=== PATIENT | female | born 2000 | race Caucasian/White ===

== ENCOUNTER 2025-05-22 14:42 | Emergency (ER) | payer OTHER, SELFPAY ==
[2025-05-22 15:46] VITALS: BP 144/99; PULSE 85; RESP 17; TEMP 37; O2SAT 100; BMI 24.7
[2025-05-22 16:52] LABS: Add Manual Diff / Slide Review NO; Hematocrit 40.4 % (36-46); Hemoglobin 13.8 g/dL (12.0-16.0); Lymphocytes Absolute Auto 3600 /uL (1100-4500); Mean Corpuscular HGB Conc 34.1 % (30-36); Mean Corpuscular Hemoglobin 30.5 PG (26-34); Mean Corpuscular Volume 89.6 fL (80-100); Platelet Count 192 X10^3/uL (150-400)
--- NOTE | 2025-05-22 17:01 | ED_ITS ---
HPI - Headache General Chief Complaint: Headache Stated Complaint: tremors in eyes, BECERRA, nausea lightheadness Time Seen by Provider: 05/22/25 16:16 Mode of arrival: Ambulatory History of Present Illness HPI Narrative: Ms. Newton is a pleasant 24 year old female with no reported past medical history, on OCPs, who presents to the emergency department for worsening eye twitching, BECERRA, and neurologic symptoms over the last 4 months. Patient first developed a left upper eyelid twitch 4 months ago. It became more persistent, and she developed a pressure like headache one month ago as well. She went to the [facility] and was sent a neuro referral which insurance would not cover, and was started on sumtriptan prn which was not helpful for the eye twitching. Over the last week, she has developed bilateral upper eyelid twitching whenever the eyelids are closed, and she feels as though she is unable to raise her eyebrows effectively, worse on the left side. She is left handed and feels as though occasionally her handwriting on the left side has become abnormal. She has occasional lightheadedness, and has felt room spinning twice when lying flat over the last week. She occasionally feels nauseous, but no vomiting. She denies any illness over the last 6 months. No precipitating trauma, stress, or life changes. No medication changes. No diet or lifetsyle changes. No drug use or smoking. Denies CP, abd pain, SOB, visual disturbance, syncope, neck pain, fevers, chills, extremity weakness, chills, tingling, confusion, brain fog, ear pain, or any abnormalities besides her head/facial/eye changes. No family history of neurologic condition. No medical allergies. Related Data Home Medications ?Medication ?Instructions ?Recorded ?Confirmed drospirenone 3 mg-ethinyl 1 tab PO DAILY 05/06/2504/09 0 estradiol 0.02 mg tablet Previous Rx's ?Medication ?Instructions ?Recorded sumatriptan succinate 50 mg tablet See Rx Instructions PO .COMPLEX #9 05/06/25 tabs Allergies Allergy/AdvReac Type Severity Reaction Status Date / Time No Known Drug Allergies Allergy Verified 05/22/25 15:46 Review of Systems Review of Systems ROS Unobtainable: All systems reviewed & are unremarkable except as noted in HPI and below Exam Narrative Exam Narrative: GENERAL: 24 year old patient appears stated age. Well-developed patient, in no acute distress. HEAD: Atraumatic. Normocephalic. EYES: PERRL. Extraocular motions intact. No scleral icterus. No injection or drainage. No nystagmus. There is intermittent frequent twitch of left upper eyelid. Patient has twitching of bilateral upper eyelids with active closing of the eyes, this is not present at rest. ENT: Nose without bleeding, purulent drainage. Normal ear canals and pearly giraldo TMs bilaterally. NECK: Trachea midline. Cervical ROM intact. No meningeal signs. No midline cervical tenderness. CARDIOVASCULAR: Regular rate and rhythm. RESPIRATORY: ?Nonlabored respirations. ?Speaking in clear, full sentences. ?Clear to auscultation. Breath sounds equal bilaterally. No wheezes, rales, or rhonchi. ? GASTROINTESTINAL: Abdomen soft, non-tender, nondistended. Normal bowel sounds. EXTREMITIES: No upper or lower extremity edema or tenderness. 2+ bilateral radial pulses, 2+ bilateral PT pulses. BACK: Nontender. NEURO: AOx3. ?Clear speech. ?Moves all 4 extremities appropriately. Gross vision intact, no visual field loss. PERRL. Extraocular movements intact. Sensation intact to light touch throughout the distribution of the trigeminal nerve. Patient is only able to minimally elevate both eyebrows however elevation is symmetric. No asymmetry with facial expressions. Gross hearing intact. Voices clear, swallowing intact. 5/5 bilateral upper and lower extremity muscle strength intact. No pronator drift. Normal [id number], heel-dorado, rapid alternating movements, steady independent gait. Sensation intact to light touch throughout the face upper and lower extremities. SKIN: No rash or erythema of visible areas Initial Vital Signs Initial Vital Signs: Vital Signs Temperature 98.6 F 05/22/25 15:46 Pulse Rate 85 05/22/25 15:46 Respiratory Rate 17 05/22/25 15:46 Blood Pressure 144/99 H 05/22/25 15:46 Pulse Oximetry 100 05/22/25 15:46 Oxygen Delivery Method Room Air 05/22/25 15:46 Course Orders Ordered: ED Orders 05/22/25 15:40 CK [Creatine Kinase] Stat Complete Blood Count AUTO DIFF Stat Comprehensive Metabolic Panel Stat Magnesium Stat 05/22/25 17:17 CT head/brain wo con Stat Discontinued Medications Sodium Chloride (Normal Saline 0.9%) 1,000 mls @ 1,000 mls/hr IV BOLUS ONE Stop: 05/22/25 18:18 Last Infusion: 05/22/25 18:40 Dose: Infused Documented By: Admin: 05/22/25 17:28 Dose: 1,000 mls/hr Documented By: MINA POTASSIUM CHLORIDE IN WATER (Potassium Cl 10 Meq/100 Ml Marlen) 10 meq in 100 mls @ 100 mls/hr IV Q1H JEANETTE Stop: 05/22/25 19:29 Last Admin: 05/22/25 18:42 Dose: Not Given Documented By: Infusion: 05/22/25 18:41 Dose: Infused Documented By: Admin: 05/22/25 18:02 Dose: 100 mls/hr Documented By: MINA Sodium Chloride (Normal Saline 0.9%) 1,000 mls @ 1,000 mls/hr IV BOLUS ONE Stop: 05/22/25 19:37 Last Infusion: 05/22/25 19:45 Dose: Infused Documented By: Admin: 05/22/25 18:45 Dose: 1,000 mls/hr Documented By: MINA Ketorolac Tromethamine (Ketorolac 30 Mg/Ml Vial) 15 mg IV NOW ONE Stop: 05/22/25 17:20 Last Admin: 05/22/25 18:43 Dose: Not Given Documented By: LEONARD Ondansetron HCl (Ondansetron 4 Mg/2 Ml Inj) 4 mg IV NOW ONE Stop: 05/22/25 17:20 Last Admin: 05/22/25 18:17 Dose: Not Given Documented By: MINA Potassium Chloride (Potassium Chloride 20 Meq/15 Ml Udc) 20 meq PO NOW ONE Stop: 05/22/25 19:19 Last Admin: 05/22/25 19:35 Dose: 20 meq Documented By: RAJ Vital Signs Vital signs: Vital Signs - 8 hr 05/22/25 15:46 05/22/25 19:12 05/22/25 19:23 Temperature 98.6 F Pulse Rate 85 103 H Respiratory Rate 17 Blood Pressure 144/99 H 136/85 Pulse Oximetry 100 100 Oxygen Delivery Method Room Air 05/22/25 19:23 05/22/25 19:30 05/22/25 19:30 Temperature Pulse Rate 98 H 92 H Respiratory Rate Blood Pressure 123/73 Pulse Oximetry 99 100 Oxygen Delivery Method MDM - Headache Medical Records Attestation: I reviewed the patient's medical records. Lab Data 05/22/25 15:40 05/22/25 15:40 Labs: Lab Results 05/22/25 Range/Units 15:40 WBC 8.2 (4.5-11.0) X10^3/uL RBC 4.51 (4.0-5.2) X10^6/uL Hgb 13.8 (12.0-16.0) g/dL Hct 40.4 (36-46) % MCV 89.6 (80-100) fL MCH 30.5 (26-34) PG MCHC 34.1 (30-36) % RDW 12.2 (11.6-14.8) % Plt Count 192 (150-400) X10^3/uL Neut % (Auto) 45.9 L (50-75) % Lymph % (Auto) 43.3 H (25-40) % Woods % (Auto) 8.4 (3-14) % Eos % (Auto) 1.8 L (2-4) % Baso % (Auto) 0.6 (0-2) % Neut # (Auto) 3800 (7056-5960) /uL Lymph # (Auto) 3600 (3724-1014) /uL Woods # (Auto) 700 (0-900) /uL Eos # (Auto) 200 (0-450) /uL Baso # (Auto) 0 (0-100) /uL Sodium 137 (137-145) mmol/L Potassium 3.2 L (3.4-5.1) mmol/L Chloride 103 (98-107) mmol/L Carbon Dioxide 26 (22-32) mmol/L BUN 20 H (7-17) mg/dL Creatinine 0.77 (0.52-1.04) mg/dL Estimated GFR > 60 (>60) mL/min BUN/Creatinine Ratio 26.0 H (6-22) Glucose 101 H (70-99) mg/dL Calcium 9.5 (8.4-10.2) mg/dL Magnesium 1.9 (1.6-2.3) mg/dL Total Bilirubin 0.4 (0.2-1.3) mg/dL AST 80 H (14-36) IU/L ALT 38 H (<35) IU/L Alkaline Phosphatase 66 (38-126) U/L Total Creatine Kinase 2013 H (30-135) U/L Total Protein 7.9 (6.3-8.2) g/dL Albumin 4.3 (3.5-5.0) g/dL Globulin 3.6 (1.7-4.1) g/dL Albumin/Globulin Ratio 1.2 (1.0-2.8) Point of Care Testing Test Results Negative Urine Dip Bedside Urine Glucose Negative Bedside Urine Bilirubin - Negative Bedside Urine Ketone - Negative Urine Specific [place] 1.005 Bedside Urine Occult Blood - Negative Bedside Urine pH 6.5 Bedside Urine Protein - Negative Bedside Urine Urobilinogen - Negative Bedside Urine Nitrite - Negative Bedside Urine Leukocytes - Negative Esterase Imaging Data CT scan - head: Radiologist's Impression: PROCEDURE: CT HEAD/BRAIN WO CON INDICATIONS: L eye twitching; decreased forehead mvmt BL, BECERRA TECHNIQUE: Noncontrast 4.5 mm thick angled axial sections acquired from the foramen magnum to the vertex, with coronal and sagittal reformats. For radiation dose reduction, the following was used: automated exposure control, adjustment of mA and/or kV according to patient size. COMPARISON: None. FINDINGS: Image quality: Diagnostic. CSF spaces: Basal cisterns are patent. No extra-axial fluid collections. Ventricles are normal in size and shape. Brain: No midline shift. No intracranial mass effect or hemorrhage. Giraldo- white matter interface is normal. Skull and face: Calvarium and visualized facial bones are intact, without suspicious lesions. Sinuses: Visualized sinuses and mastoids are clear. IMPRESSION: No acute intracranial pathology. Dictated by: Cornell Beckham M.D. on 05/22/2025 at 18:18 Approved by: Cornell Beckham M.D. on 05/22/2025 at 18:19 [facility] Narrative Medical decision making narrative: 24 year old female with no reported past medical history, on OCPs, who presents to the emergency department for worsening eye twitching, BECERRA, and neurologic symptoms over the last 4 months. Differential diagnosis includes but is not limited to neuro muscular disorder, intracerebral mass, electrolyte derangement, dehydration, rhabdomyolysis, migraine, etc. On exam patient is in no acute distress, nontoxic-appearing, all vital signs within normal limits. She has no focal neurologic deficits but does have left upper eyelid twitching at rest and bilateral upper eyelid twitching with closing of eyes. Patient declines need for pain or nausea medication at this time. We will treat with IV fluids, check CBC, CMP, magnesium, CK, CT head without contrast. Discussed case with the attending physician, Dr. Cazares. Labs reveal normal WBC count 8.2, hemoglobin 13.8 hematocrit 40.4. Normal sodium 137. Decreased potassium 3.2. Elevated BUN 20, normal creatinine 0.77. Glucose 101. Calcium 9.5. Slight elevation of AST 80 ALT 38. Total creatinine kinase is elevated at 2013. Normal magnesium 1.9. CT brain reveals no acute intracranial pathology. Discussed all imaging results with attending you are physician. Patient's potassium was repleted and she was treated with 2 L of IV fluids. Printed discuss all findings with the patient, discussed the importance of increased hydration, electrolyte repletion, and prompt follow up with the PCP for repeat labs and Neurology referral. Discussed strict ED return precautions. Patient verbalized understanding of all information and is happy with this plan, all questions answered, she is stable for discharge home with her . Discharge Plan Departure Patient Disposition: Home Clinical Impression: Eye muscle twitches, Acute hypokalemia, Elevated CK Headache Qualifiers: Headache type: unspecified Headache chronicity pattern: chronic headache I ntractability: not intractable Qualified Code(s): R51.9 - Headache, unspecified Instructions: DI for Hypokalemia, DI for Headache Activity Restrictions/Additional Instructions: Dear Ms. Newton, Thank you for coming to the emergency department. Today you were evaluated for headache, eye twitching and other symptoms. Your lab work revealed low potassium, slightly elevated liver enzymes, and elevated creatinine kinase. CT scan of your brain did not reveal any anatomical abnormalities. You were treated with 2 L of IV fluids and potassium. Please have repeat lab work with your primary care doctor within the next week including complete metabolic panel with electrolytes and creatinine kinase. It is important to increase hydration and also increase electrolytes such as potassium and magnesium with daily supplementation or in your diet. Please return to the emergency department if you develop severe pain, visual changes, weakness numbness tingling of the body or any new or worsening symptoms. You will need to have a referral to Neurology from your primary care doctor. Please follow up with your primary care doctor within the next 2-3 days for ER follow-up. (If you do not have a PCP you can call [phone]. ?to schedule an appointment with an [facility] Primary Care Provider) IF YOU DEVELOP ANY NEW OR WORSENING SYMPTOMS, RETURN TO THE ER! Please read the attached instructions, they highlight more specific treatments and interventions for you at home. Thank you for letting me participate in your care, Sandrine Manzo PA-C Prescriptions: No Action drospirenone-ethinyl estradiol 3-0.02 mg tablet 1 tab PO DAILY sumatriptan succinate 50 mg tablet See Rx Instructions PO .COMPLEX Qty: 9 0RF Rx Instructions: take 1 tab at onset of headache; if no relief may repeat 1 tab after at least 2 hrs; max = 2 tabs/24 hr PO Referrals: Miscellaneous,Doctor, MD [Primary Care Provider, Medical] Stand Alone Forms: Patient Portal/API
[2025-05-22 17:14] LABS: Alanine Aminotransferase 38 IU/L (<35); Albumin 4.3 g/dL (3.5-5.0); Albumin Globulin Ratio 1.2 (1.0-2.8); Alkaline Phosphatase 66 U/L (38-126); Blood Urea Nitrogen 20 mg/dL (7-17); Calcium 9.5 mg/dL (8.4-10.2); Carbon Dioxide 26 mmol/L (22-32); Chloride 103 mmol/L (98-107); Estimated Glomerular Filt Rate > 60 mL/min (>60); Globulin 3.6 g/dL (1.7-4.1); Glucose 101 mg/dL (70-99); HEMOLYSIS < 15 (0-50); Magnesium 1.9 mg/dL (1.6-2.3); Potassium 3.2 mmol/L (3.4-5.1); Sodium 137 mmol/L (137-145); Total Protein 7.9 g/dL (6.3-8.2)
--- NOTE | 2025-05-22 17:17 | DI.CT.S_ITS ---
PROCEDURE: CT HEAD/BRAIN WO CON INDICATIONS: L eye twitching; decreased forehead mvmt BL, BECERRA TECHNIQUE: Noncontrast 4.5 mm thick angled axial sections acquired from the foramen magnum to the vertex, with coronal and sagittal reformats. For radiation dose reduction, the following was used: automated exposure control, adjustment of mA and/or kV according to patient size. COMPARISON: None. FINDINGS: Image quality: Diagnostic. CSF spaces: Basal cisterns are patent. No extra-axial fluid collections. Ventricles are normal in size and shape. Brain: No midline shift. No intracranial mass effect or hemorrhage. Giraldo- white matter interface is normal. Skull and face: Calvarium and visualized facial bones are intact, without suspicious lesions. Sinuses: Visualized sinuses and mastoids are clear. IMPRESSION: No acute intracranial pathology. Dictated by: Cornell Beckham M.D. on 05/22/2025 at 18:18 Approved by: Cornell Beckham M.D. on 05/22/2025 at 18:19
[2025-05-22 17:20] LABS: Creatine Kinase 2013 U/L (30-135)
[2025-05-22] MEDS: SODIUM CHLORIDE 0.9% 1,000 ML 1000 ML IV ×2 (17:28→18:45)
[2025-05-22] MEDS: POTASSIUM CHLORIDE IN WATER 10 MEQ/100 ML PIGGYBACK 100 MEQ IV (18:02)
--- NOTE | 2025-05-22 18:19 | PC.NURSE ---
Per provider Jovany hold toradol at this time.
--- NOTE | 2025-05-22 18:43 | PC.NURSE ---
Patient reports shakiness. Provider Jovany made aware and verbal direction to stop IV potassium and waste rest of bag. IV potassium stopped.
[2025-05-22 19:12] VITALS: PULSE 103; O2SAT 100
--- NOTE | 2025-05-22 19:18 | PC.NURSE ---
Eye twtiches noted when patient has eyes closed. Pt reports increased twitches over the alst week. Denies hx of trauma. Denies confusion. AOX4.
[2025-05-22 19:23] VITALS: BP 136/85; PULSE 98; O2SAT 99
[2025-05-22 19:30] VITALS: BP 123/73; PULSE 92; O2SAT 100
[2025-05-22] MEDS: POTASSIUM CHLORIDE 20 MEQ/15 ML UDC PO (19:35)
== END 2025-05-22 20:03 | disposition home or self-care (01) ==
PROVIDERS: Emergency Provider Physician Assistant
DX: R25.3 Fasciculation (principal); E87.6 Hypokalemia; R51.9 Headache, unspecified; R74.8 Abnormal levels of other serum enzymes
CPT/HCPCS: 36415; 70450; 80053; 81003; 81025; 82550; 83735; 85025; 96360; 96361; 99284

== ENCOUNTER 2025-05-25 06:47 | Emergency (ER) | payer OTHER, SELFPAY ==
[2025-05-25] VITALS (11 sets, daily range): BP systolic 111–145; BP diastolic 65–88; PULSE 74–115; RESP 17–26; TEMP 37.1; O2SAT 98–100; BMI 25.8
--- NOTE | 2025-05-25 06:57 | EKG_ITS ---
[place] [id number] [place] [id number] Test Date: 2025-05-25 Pat Name: Valeri Newton Department: Room: Gender: Female [employer] Supervisor: robin pardo : 2000 Requested By: Order Number: [id number] Reading MD: Refugio Oconnell MD Measurements Intervals [place] Rate: 91 P: 51 UT: 138 QRS: 57 QRSD: 100 T: -36 QT: 358 QTc: 440 Interpretive Statements Normal sinus rhythm Possible Left atrial enlargement Incomplete right bundle branch block Marked ST abnormality, possible inferior subendocardial injury NO PRIOR TRACING Electronically Signed On 05-25-2025 7:37:40 PDT by Refugio Oconnell MD
--- NOTE | 2025-05-25 07:16 | DI.RAD.S_ITS ---
PROCEDURE: XR CHEST 1V INDICATIONS: Chest Pain TECHNIQUE: One view of the chest was acquired. COMPARISON: None. FINDINGS: Surgical changes and devices: None. Lungs and pleura: Lungs are clear. No pleural effusions or pneumothorax. Mediastinum: Mediastinal contours appear normal. Heart size is normal. Bones and chest wall: No suspicious bony lesions. Overlying soft tissues appear unremarkable. IMPRESSION: No acute cardiopulmonary abnormality is seen. Dictated by: Shaw Laureano M.D. on 05/25/2025 at 8:44 Approved by: Shaw Laureano M.D. on 05/25/2025 at 8:44
[2025-05-25 07:26] LABS: Appearance Urine UA CLEAR; Bilirubin Urine UA NEGATIVE (NEGATIVE); Color Urine UA YELLOW; Glucose Urine UA NEGATIVE (Negative); Ketones Urine UA NEGATIVE (NEGATIVE); Leukocyte Esterase Urine UA NEGATIVE (NEGATIVE); Nitrite Urine UA NEGATIVE (Negative); Occult Blood Urine UA NEGATIVE (Negative); Protein Urine UA NEGATIVE (Negative); Specific Gravity Urine UA <=1.005 (1.000-1.035); Urobilinogen Urine UA 0.2 E.U./dL (0.2)
[2025-05-25 07:27] LABS: Add Manual Diff / Slide Review NO; Hematocrit 44.2 % (36-46); Hemoglobin 14.9 g/dL (12.0-16.0); Lymphocytes Absolute Auto 2900 /uL (1100-4500); Mean Corpuscular HGB Conc 33.7 % (30-36); Mean Corpuscular Hemoglobin 30.6 PG (26-34); Mean Corpuscular Volume 90.6 fL (80-100); Platelet Count 196 X10^3/uL (150-400)
[2025-05-25 07:28] LABS: pH Urine UA 5.5 (4.5-8.0)
[2025-05-25 07:37] LABS: Culture Indicated Urine Cult Not Indicated
[2025-05-25 07:38] LABS: INR 1.0 (0.9-1.3); Prothrombin Time 11.3 SECONDS (9.4-12.5)
--- NOTE | 2025-05-25 07:40 | ED_ITS ---
HPI - Arrhythmia/Palpitations General Chief Complaint: Arrhythmia/Palpitations Stated Complaint: elevated CK Time Seen by Provider: 05/25/25 06:57 Source: patient Mode of arrival: Ambulatory History of Present Illness HPI narrative: 24-year-old female history of PCOS on control started to have left eye twitching 3 4 months ago that has since progressed to frontal headache for the past 3 4 weeks increasing intensity along with bilateral eye twitching when she closes her eyes muscle cramps. She has seen her PCP in the walk-in clinic and has been put on migraine medication. 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 In the past 24 hours she has had heart palpitations in the midsternal region with no radiation elsewhere and denies any nausea vomiting diaphoresis dyspnea on exertion leg pain or leg swelling. Patient denies cough, runny nose, sore throat, dizziness, loss of consciousness, blurred vision, weakness in the arms, or legs or difficulty walking. Other than what is stated 14 point review of system is negative. Related Data Home Medications ?Medication ?Instructions ?Recorded ?Confirmed drospirenone 3 mg-ethinyl 1 tab PO DAILY 05/06/2504/09 estradiol 0.02 mg tablet Previous Rx's ?Medication ?Instructions ?Recorded sumatriptan succinate 50 mg tablet See Rx Instructions PO .COMPLEX #9 05/06/25 tabs potassium chloride 20 mEq 40 meq (2 x 20 mEq) PO DAILY #6 05/25/25 tablet,extended release(part/cryst) tabs Allergies Allergy/AdvReac Type Severity Reaction Status Date / Time No Known Drug Allergies Allergy Verified 05/25/25 06:56 Review of Systems Review of Systems ROS Unobtainable: All systems reviewed & are unremarkable except as noted in HPI and below Patient History Social History Smoking Status: Never smoker Smoking Status: Never smoker Exam Narrative Exam Narrative: GENERAL: [24] year old patient appears stated age. Well-developed patient, in mild distress. HEAD: Atraumatic. Normocephalic. EYES: Pupils equal round and reactive. Extraocular motions intact. No scleral icterus. No injection or drainage. ENT: Nose without bleeding, purulent drainage. Throat without erythema, tonsillar hypertrophy or exudate. Airway patent. NECK: Trachea midline. Non tender CARDIOVASCULAR: Regular rate and rhythm without murmurs, gallops, or rubs. RESPIRATORY: Clear to auscultation. Breath sounds equal bilaterally. No wheezes, rales, or rhonchi. GASTROINTESTINAL: Abdomen soft, non-tender, nondistended. EXTREMITIES: No edema or joint tenderness. BACK: Nontender without deformity or crepitance. No flank tenderness. NEURO: AOx3. GCS 15 nonfocal neuro exam SKIN: No rash or erythema of visible areas Initial Vital Signs Initial Vital Signs: Vital Signs Temperature 98.7 F 05/25/25 06:55 Pulse Rate 115 H 05/25/25 06:55 Respiratory Rate 18 05/25/25 06:55 Blood Pressure 145/85 H 05/25/25 06:55 Pulse Oximetry 100 05/25/25 06:55 Oxygen Delivery Method Room Air 05/25/25 06:55 Course Orders Ordered: ED Orders 05/25/25 07:12 Complete Blood Count AUTO DIFF Stat Comprehensive Metabolic Panel Stat D Dimer Stat Lipase Stat Magnesium Stat NT-proBNP (BNP-Adult 18+) Stat PTT Partial Thromboplastin Dilan Stat Prothrombin Time INR Stat TSH [Thyroid Stimulating Hormone] Stat Troponin & CK Cardiac Panel Stat Urinalysis and Microscopic Stat 05/25/25 07:16 XR chest 1V Stat EKG-12 Lead Stat Magnesium Oxide (Magnesium Oxide 400 Mg Tablet) 800 mg PO BID JEANETTE Last Admin: 05/25/25 08:30 Dose: 800 mg Documented By: DILEEP Discontinued Medications Lactated Ringer's (Lactated Ringers) 1,000 mls @ 1,000 mls/hr IV BOLUS ONE Stop: 05/25/25 08:38 Last Infusion: 05/25/25 08:24 Dose: Infused Documented By: Admin: 05/25/25 07:52 Dose: 1,000 mls/hr Documented By: DILEEP Potassium Chloride (Potassium Chloride 20 Meq/15 Ml Udc) 40 meq PO NOW ONE Stop: 05/25/25 08:13 Last Admin: 05/25/25 08:30 Dose: 40 meq Documented By: DILEEP Vital Signs Vital signs: Vital Signs - 8 hr 05/25/25 06:55 05/25/25 06:59 05/25/25 07:00 Temperature 98.7 F Pulse Rate 115 H 96 H Respiratory Rate 18 Blood Pressure 145/85 H 138/86 Pulse Oximetry 100 100 Oxygen Delivery Method Room Air 05/25/25 07:00 05/25/25 07:08 05/25/25 07:08 Temperature Pulse Rate 112 H 90 Respiratory Rate 20 26 H Blood Pressure 140/81 Pulse Oximetry 100 100 Oxygen Delivery Method 05/25/25 07:30 05/25/25 07:30 05/25/25 08:00 Temperature Pulse Rate 84 Respiratory Rate 20 Blood Pressure 115/70 118/71 Pulse Oximetry 100 Oxygen Delivery Method 05/25/25 08:00 05/25/25 08:30 05/25/25 08:30 Temperature Pulse Rate 80 78 Respiratory Rate 23 20 Blood Pressure 135/88 Pulse Oximetry 100 100 Oxygen Delivery Method 05/25/25 08:31 05/25/25 08:31 Temperature Pulse Rate 77 Respiratory Rate 21 Blood Pressure 132/86 Pulse Oximetry 100 Oxygen Delivery Method MDM - Arrhythmia/Palpitations Lab Data 05/25/25 07:12 05/25/25 07:12 Labs: Lab Results 05/25/25 Range/Units 07:12 WBC 6.3 (4.5-11.0) X10^3/uL RBC 4.88 (4.0-5.2) X10^6/uL Hgb 14.9 (12.0-16.0) g/dL Hct 44.2 (36-46) % MCV 90.6 (80-100) fL MCH 30.6 (26-34) PG MCHC 33.7 (30-36) % RDW 12.4 (11.6-14.8) % Plt Count 196 (150-400) X10^3/uL Neut % (Auto) 39.9 L (50-75) % Lymph % (Auto) 46.3 H (25-40) % [place] % (Auto) 10.2 (3-14) % Eos % (Auto) 3.0 (2-4) % Baso % (Auto) 0.6 (0-2) % Neut # (Auto) 2500 (4648-1319) /uL Lymph # (Auto) 2900 (2922-3653) /uL [place] # (Auto) 600 (0-900) /uL Eos # (Auto) 200 (0-450) /uL Baso # (Auto) 0 (0-100) /uL PT 11.3 (9.4-12.5) SECONDS INR 1.0 (0.9-1.3) APTT 28 (25.1-36.5) SECONDS D-Dimer < 215 (<500) ng/ml Sodium 140 (137-145) mmol/L Potassium 3.0 L (3.4-5.1) mmol/L Chloride 102 (98-107) mmol/L Carbon Dioxide 27 (22-32) mmol/L BUN 16 (7-17) mg/dL Creatinine 0.88 (0.52-1.04) mg/dL Estimated GFR > 60 (>60) mL/min BUN/Creatinine Ratio 18.2 (6-22) Glucose 84 (70-99) mg/dL Calcium 9.6 (8.4-10.2) mg/dL Magnesium 1.8 (1.6-2.3) mg/dL Total Bilirubin 0.7 (0.2-1.3) mg/dL AST 42 H (14-36) IU/L ALT 29 (<35) IU/L Alkaline Phosphatase 58 (38-126) U/L Total Creatine Kinase 231 H D (30-135) U/L Troponin I < 0.012 (0.01-0.034) ng/mL NT-Pro-B Natriuret Pep 105 (<125) pg/mL Total Protein 8.3 H (6.3-8.2) g/dL Albumin 4.6 (3.5-5.0) g/dL Globulin 3.7 (1.7-4.1) g/dL Albumin/Globulin Ratio 1.2 (1.0-2.8) Lipase 122 (23-300) U/L TSH 5.45 H (0.47-4.68) uIU/mL Urine Color Yellow Urine Appearance Clear Urine pH 5.5 (4.5-8.0) Ur Specific [place] <=1.005 (1.000-1.035) Urine Protein Negative (Negative) Urine Glucose (UA) Negative (Negative) g/dL Urine Ketones Negative (NEGATIVE) Urine Occult Blood Negative (Negative) Urine Nitrate Negative (Negative) Urine Bilirubin Negative (NEGATIVE) Urine Urobilinogen 0.2 (0.2) E.U./dL Ur Leukocyte Esterase Negative (NEGATIVE) Urine RBC None seen (0-5/HPF) Urine WBC None seen (0-5/HPF) Ur Squamous Epith Cells None seen (0-5/HPF) Amorphous Sediment 1+ Urine Bacteria None seen (None) Ur Culture Indicated? Cult not indicated Vol Urine Centrifuged 10ml (spun) Imaging Data Chest x-ray: Radiologist's Impresson: XRay Report Signed Patient: Valeri Newton MR#: [id number] : 2000 Acct:[id number] Age/Sex: 24 / F Date of Service: 05/25/25 Loc: ED Accession Number: [id number] Procedure: XR chest 1V Ordering Provider: Refugio Yadav D.O. PROCEDURE: XR CHEST 1V INDICATIONS: Chest Pain TECHNIQUE: One view of the chest was acquired. COMPARISON: None. FINDINGS: Surgical changes and devices: None. Lungs and pleura: Lungs are clear. No pleural effusions or pneumothorax. Mediastinum: Mediastinal contours appear normal. Heart size is normal. Bones and chest wall: No suspicious bony lesions. Overlying soft tissues appear unremarkable. IMPRESSION: No acute cardiopulmonary abnormality is seen. Dictated by: Shaw Laureano M.D. on 05/25/2025 at 8:44 Approved by: Shaw Laureano M.D. on 05/25/2025 at 8:44 ECG Data Interpretation: NSR HR 91 NM 138 QRS [address]-t wave change No previous EKG to compare MDM Narrative Medical decision making narrative: Vital signs, nurse triage note, medication list, previous ER visits, and all imaging studies reviewed. Patient given lactated ringer 1 L bolus potassium solution 40 mEq and Mag oxide 800 mg. Potassium 3 days ago was 3.2 today is 3.0 magnesium 1.8 CK today 231 from 2013 troponin normal D-dimer normal as x-ray did not show any acute process and EKG normal sinus rhythm. Differential diagnosis includes rhabdomyolysis, acute renal impairment, thyroid disease, electrolyte derangement. Follow up PCP in 1 week for recheck. Discharge Plan Departure Patient Disposition: Home Clinical Impression: Heart palpitations, Hypokalemia Instructions: DI for Hypokalemia Activity Restrictions/Additional Instructions: Return with new or worsening symptoms. Follow up with PCP in 1-2 weeks for recheck a potassium level. Take your medicines as directed. Prescriptions: New potassium chloride 20 mEq tablet,ER particles/crystals 40 meq PO DAILY Qty: 6 0RF No Action drospirenone-ethinyl estradiol 3-0.02 mg tablet 1 tab PO DAILY sumatriptan succinate 50 mg tablet See Rx Instructions PO .COMPLEX Qty: 9 0RF Rx Instructions: take 1 tab at onset of headache; if no relief may repeat 1 tab after at least 2 hrs; max = 2 tabs/24 hr PO Referrals: ProviderNathalia [Primary Care Provider, Family Practice] Stand Alone Forms: Patient Portal/API
[2025-05-25 07:41] LABS: PTT Partial Thromboplastin Tim 28 SECONDS (25.1-36.5)
[2025-05-25 07:47] LABS: Alanine Aminotransferase 29 IU/L (<35); Albumin 4.6 g/dL (3.5-5.0); Albumin Globulin Ratio 1.2 (1.0-2.8); Alkaline Phosphatase 58 U/L (38-126); Blood Urea Nitrogen 16 mg/dL (7-17); Calcium 9.6 mg/dL (8.4-10.2); Carbon Dioxide 27 mmol/L (22-32); Chloride 102 mmol/L (98-107); Creatine Kinase 231 U/L (30-135); Estimated Glomerular Filt Rate > 60 mL/min (>60); Globulin 3.7 g/dL (1.7-4.1); Glucose 84 mg/dL (70-99); HEMOLYSIS < 15 (0-50); Lipase 122 U/L (23-300); Magnesium 1.8 mg/dL (1.6-2.3); Potassium 3.0 mmol/L (3.4-5.1); Sodium 140 mmol/L (137-145); Total Protein 8.3 g/dL (6.3-8.2)
[2025-05-25] MEDS: LACTATED RINGERS 1,000 ML 1000 ML IV (07:52)
[2025-05-25 07:59] LABS: NT-proBNP (BNP-Adult 18+) 105 pg/mL (<125); Troponin I < 0.012 ng/mL (0.01-0.034)
[2025-05-25 08:30] LABS: Thyroid Stimulating Hormone 5.45 uIU/mL (0.47-4.68)
[2025-05-25] MEDS: POTASSIUM CHLORIDE 20 MEQ/15 ML UDC 40 MEQ PO (08:30)
[2025-05-25] MEDS: MAGNESIUM OXIDE 400 MG TABLET 800 MG PO (08:30)
[2025-05-25 09:21] LABS: Free T4, Direct Thyroxine 1.34 ng/dL (0.78-2.19)
== END 2025-05-25 09:40 | disposition home or self-care (01) ==
PROVIDERS: Emergency Provider Family Medicine
DX: R00.2 Palpitations (principal); E87.6 Hypokalemia; R07.9 Chest pain, unspecified
CPT/HCPCS: 36415; 71045; 80053; 81001; 82550; 83690; 83735; 83880; 84439; 84443; 84484; 85025; 85379; 85610; 85730; 93005; 96360; 99284

== ENCOUNTER → 2025-07-04 12:36 | Outpatient (CLI) | payer OTHER, SELFPAY ==
--- NOTE | 2025-07-04 12:37 | DI.MRI.S_ITS ---
PROCEDURE: MR ABDOMEN WO/W CON INDICATIONS: hypoglycemia TECHNIQUE: Coronal HASTE, axial 2D FLASH in- and [id number]; axial breath-hold T2 FSE. Dynamic axial VIBE during the administration of contrast; post-contrast coronal VIBE or 2D FLASH with fat saturation from the hepatic dome to the iliac crests. Optional diffusion weighted imaging and ADC may be performed. COMPARISON: None. FINDINGS: Image quality: Diagnostic. Lung bases: Unremarkable. Liver: Normal size and signal. Smooth margin. No enhancing mass. Gallbladder: No gallstones or wall thickening. Biliary ducts: No biliary dilation. Pancreas: Normal size and morphology without visible ductal dilatation or inflammation. Conventional ductal anatomy. Spleen: Size is within normal limits. Adrenal Glands: No adrenal nodules. Kidneys and Ureters: Symmetric enhancement. No nephrolithiasis or hydronephrosis. No visible mass or cyst requiring follow up. No hydroureter. Stomach and Bowel: Stomach filled with ingested material visible small and large bowel loops are otherwise normal. Peritoneum: No free fluid or free air. Ventral Wall: No hernia. Abdominal Nodes: No retroperitoneal or mesenteric adenopathy by size criteria. Vessels: The abdominal aorta, IVC, and portal vein are of normal caliber. Bones: Mild S-shaped scoliosis. No suspicious bone lesion. IMPRESSION: Normal MRI of the abdomen without explanation for symptoms. Dictated by: Glenys Villafuerte M.D. on 07/05/2025 at 11:21 Approved by: Glenys Villafuerte M.D. on 07/05/2025 at 11:30
== END ==
LOC: MRI 12:37
PROVIDERS: Referring Provider Nurse Practitioner Family; Visit Provider Nurse Practitioner Family
DX: E16.2 Hypoglycemia, unspecified (principal); E87.6 Hypokalemia
CPT/HCPCS: 74183; A9579

== ENCOUNTER → 2025-07-05 07:40 | Outpatient (CLI) | payer OTHER, SELFPAY ==
--- NOTE | 2025-07-05 07:41 | DI.US.S_ITS ---
PROCEDURE: US SOFT TISSUE HEAD AND NECK INDICATIONS: neoplasm of uncertain behavior TECHNIQUE: Real-time scanning was performed of the neck region of interest, with image documentation. COMPARISON: [facility], CT, CT HEAD/BRAIN WO CON, 05/22/2025, 17:43. FINDINGS: 0.4 x 0.2 x 0.5 centimeter hypoechoic nodule with oval contours and well-defined margins in the region of clinical interest at the posterior right neck. Doppler evaluation demonstrates no internal vascularity. IMPRESSION: 0.4 x 0.2 x 0.5 centimeter nonspecific hypoechoic nodule corresponds to palpable lesion. Dictated by: Steph Lindsey MD, PhD on 07/05/2025 at 9:37 Approved by: Steph Lindsey MD, PhD on 07/05/2025 at 9:39
== END ==
LOC: US 07:40
PROVIDERS: Referring Provider Nurse Practitioner Family; Visit Provider Nurse Practitioner Family
DX: D48.5 Neoplasm of uncertain behavior of skin (principal)
CPT/HCPCS: 76536

== ENCOUNTER 2025-07-09 11:16 | Emergency (ER) | payer OTHER, SELFPAY ==
[2025-07-09] VITALS (12 sets, daily range): BP systolic 113–143; BP diastolic 60–86; PULSE 72–106; RESP 14–22; TEMP 36.7–37.1; O2SAT 97–100; BMI 24.7
--- NOTE | 2025-07-09 11:47 | EKG_ITS ---
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
--- NOTE | 2025-07-09 11:47 | DI.RAD.S_ITS ---
PROCEDURE: XR CHEST 1V INDICATIONS: Chest Pain TECHNIQUE: One view of the chest was acquired. COMPARISON: [facility], CR, XR CHEST 1V, 05/25/2025, 7:31. FINDINGS: Surgical changes and devices: None. Lungs and pleura: Lungs are clear. No pleural effusions or pneumothorax. Mediastinum: Mediastinal contours appear normal. Heart size is normal. Bones and chest wall: No suspicious bony lesions. Overlying soft tissues appear unremarkable. IMPRESSION: No acute cardiopulmonary abnormality is seen. Approved by: Osvaldo Pat M.D. on 07/09/2025 at 11:30
[2025-07-09 12:23] LABS: INR 1.0 (0.9-1.3); Prothrombin Time 11.4 SECONDS (9.4-12.5)
[2025-07-09 12:25] LABS: Add Manual Diff / Slide Review NO; Hematocrit 43.0 % (36-46); Hemoglobin 14.6 g/dL (12.0-16.0); Lymphocytes Absolute Auto 2900 /uL (1100-4500); Mean Corpuscular HGB Conc 34.0 % (30-36); Mean Corpuscular Hemoglobin 30.5 PG (26-34); Mean Corpuscular Volume 89.6 fL (80-100); PTT Partial Thromboplastin Tim 27 SECONDS (25.1-36.5); Platelet Count 171 X10^3/uL (150-400)
[2025-07-09 12:28] LABS: Alanine Aminotransferase 21 IU/L (<35); Albumin 4.7 g/dL (3.5-5.0); Albumin Globulin Ratio 1.3 (1.0-2.8); Alkaline Phosphatase 51 U/L (38-126); Blood Urea Nitrogen 10 mg/dL (7-17); Calcium 9.5 mg/dL (8.4-10.2); Carbon Dioxide 26 mmol/L (22-32); Chloride 102 mmol/L (98-107); Creatine Kinase 61 U/L (30-135); Estimated Glomerular Filt Rate > 60 mL/min (>60); Globulin 3.7 g/dL (1.7-4.1); Glucose 91 mg/dL (70-99); HEMOLYSIS < 15 (0-50); Lipase 93 U/L (23-300); Magnesium 1.9 mg/dL (1.6-2.3); Potassium 3.4 mmol/L (3.4-5.1); Sodium 138 mmol/L (137-145); Total Protein 8.4 g/dL (6.3-8.2)
[2025-07-09 12:39] LABS: NT-proBNP (BNP-Adult 18+) 97 pg/mL (<125); Troponin I < 0.012 ng/mL (0.01-0.034)
--- NOTE | 2025-07-09 15:09 | ED.ABDPAIN ---
HPI - Abdominal Pain General Chief Complaint: Fever Stated Complaint: low potassium, fever Time Seen by Provider: 07/09/25 14:07 Mode of arrival: Ambulatory History of Present Illness HPI narrative: Patient is a 24-year-old female history of hypokalemia presenting today with nausea and fever. She reports that she had a fever at home she feeling kind of nauseous. She is tolerating fluids she is able eat. She has no abdominal pain. She has noted that her heart rate is fast at times. He has been seen by Cardiology he reports that it is not her heart. No diagnosis of POTS syndrome. She recently had an MRI of her abdomen for a possible pancreatic mass and that was read as normal on 07/04/2025. She currently denies any chest pain any palpitations she feels like her eyes flutter whenever she closes them. She is tolerating fluids there is a large bottle of water next to her. Related Data Home Medications ?Medication ?Instructions ?Recorded ?Confirmed drospirenone 3 mg-ethinyl 1 tab PO DAILY 05/06/25 05/06/25 estradiol 0.02 mg tablet Previous Rx's ?Medication ?Instructions ?Recorded sumatriptan succinate 50 mg tablet See Rx Instructions PO .COMPLEX #9 05/06/25 tabs potassium chloride 20 mEq 40 meq (2 x 20 mEq) PO DAILY #6 05/25/25 tablet,extended release(part/cryst) tabs Allergies Allergy/AdvReac Type Severity Reaction Status Date / Time No Known Drug Allergies Allergy Verified 05/25/25 06:56 Exam Initial Vital Signs Initial Vital Signs: Vital Signs Temperature 98.8 F 07/09/25 11:41 Pulse Rate 99 H 07/09/25 11:41 Respiratory Rate 16 07/09/25 11:41 Blood Pressure 133/86 07/09/25 11:41 Pulse Oximetry 100 07/09/25 11:41 Oxygen Delivery Method Room Air 07/09/25 11:41 GENERAL: Well-appearing, well-nourished and in no acute distress. HEENT: Head atraumatic,EOMI, pupils reactive, face symmetric, moist mucous membranes CARDIOVASCULAR: Regular rate and rhythm without murmurs, rubs or gallops. RESPIRATORY: Breath sounds equal bilaterally, no wheezes rales or rhonchi. ABDOMEN: Soft, nontender. Normoactive bowel sounds all 4 quadrants. No guarding or rebound. EXTREMITIES: Normal range of motion, no clubbing or edema. Neurovascularly intact NEUROLOGICAL: Alert and oriented x4.Normal gait and speech. Cranial nerves II through XII grossly intact. SKIN: Warm, dry, no laceration, no petechiae, no rashes or lesions. Course Orders Ordered: ED Orders 07/09/25 11:47 XR chest 1V Stat EKG-12 Lead Stat 07/09/25 12:09 Complete Blood Count AUTO DIFF Stat Comprehensive Metabolic Panel Stat Lipase Stat Magnesium Stat NT-proBNP (BNP-Adult 18+) Stat PTT Partial Thromboplastin Dilan Stat Prothrombin Time INR Stat Troponin & CK Cardiac Panel Stat Discontinued Medications Aspirin (Aspirin 81 Mg Chew Tab) 324 mg PO NOW ONE Stop: 07/09/25 11:47 Last Admin: 07/09/25 12:18 Dose: Not Given Documented By: RAJ Sodium Chloride (Normal Saline 0.9%) 1,000 mls @ 1,000 mls/hr IV BOLUS ONE Stop: 07/09/25 16:07 Last Admin: 07/09/25 15:22 Dose: Not Given Documented By: RAJ Vital Signs Vital signs: Vital Signs - 8 hr 07/09/25 11:41 07/09/25 12:06 07/09/25 12:07 Temperature 98.8 F Pulse Rate 99 H 100 H 106 H Respiratory Rate 16 21 17 Blood Pressure 133/86 Pulse Oximetry 100 99 100 Oxygen Delivery Method Room Air 07/09/25 12:07 07/09/25 12:30 07/09/25 12:30 Temperature Pulse Rate 85 Respiratory Rate 21 Blood Pressure 143/85 H 125/72 Pulse Oximetry 100 Oxygen Delivery Method 07/09/25 13:00 07/09/25 13:00 07/09/25 13:30 Temperature Pulse Rate 85 78 Respiratory Rate 16 17 Blood Pressure 121/74 Pulse Oximetry 97 98 Oxygen Delivery Method 07/09/25 13:30 07/09/25 14:00 07/09/25 14:00 Temperature Pulse Rate 82 Respiratory Rate 14 Blood Pressure 113/63 119/73 Pulse Oximetry 99 Oxygen Delivery Method 07/09/25 14:08 07/09/25 14:08 07/09/25 14:30 Temperature Pulse Rate 88 80 Respiratory Rate 22 18 Blood Pressure 129/60 Pulse Oximetry 99 98 Oxygen Delivery Method 07/09/25 15:00 07/09/25 15:30 07/09/25 15:39 Temperature 98.0 F Pulse Rate 104 H 72 76 Respiratory Rate 16 20 16 Blood Pressure 115/72 Pulse Oximetry 99 98 100 Oxygen Delivery Method Room Air MDM - Abdominal Pain Lab Data 07/09/25 12:09 07/09/25 12:09 Labs: Lab Results 07/09/25 Range/Units 12:09 WBC 7.0 (4.5-11.0) X10^3/uL RBC 4.79 (4.0-5.2) X10^6/uL Hgb 14.6 (12.0-16.0) g/dL Hct 43.0 (36-46) % MCV 89.6 (80-100) fL MCH 30.5 (26-34) PG MCHC 34.0 (30-36) % RDW 12.0 (11.6-14.8) % Plt Count 171 (150-400) X10^3/uL Neut % (Auto) 47.6 L (50-75) % Lymph % (Auto) 41.6 H (25-40) % [place] % (Auto) 7.8 (3-14) % Eos % (Auto) 2.5 (2-4) % Baso % (Auto) 0.5 (0-2) % Neut # (Auto) 3300 (1163-0333) /uL Lymph # (Auto) 2900 (7204-6116) /uL [place] # (Auto) 500 (0-900) /uL Eos # (Auto) 200 (0-450) /uL Baso # (Auto) 0 (0-100) /uL PT 11.4 (9.4-12.5) SECONDS INR 1.0 (0.9-1.3) APTT 27 (25.1-36.5) SECONDS Sodium 138 (137-145) mmol/L Potassium 3.4 (3.4-5.1) mmol/L Chloride 102 (98-107) mmol/L Carbon Dioxide 26 (22-32) mmol/L BUN 10 (7-17) mg/dL Creatinine 0.80 (0.52-1.04) mg/dL Estimated GFR > 60 (>60) mL/min BUN/Creatinine Ratio 12.5 (6-22) Glucose 91 (70-99) mg/dL Calcium 9.5 (8.4-10.2) mg/dL Magnesium 1.9 (1.6-2.3) mg/dL Total Bilirubin 0.6 (0.2-1.3) mg/dL AST 28 (14-36) IU/L ALT 21 (<35) IU/L Alkaline Phosphatase 51 (38-126) U/L Total Creatine Kinase 61 (30-135) U/L Troponin I < 0.012 (0.01-0.034) ng/mL NT-Pro-B Natriuret Pep 97 (<125) pg/mL Total Protein 8.4 H (6.3-8.2) g/dL Albumin 4.7 (3.5-5.0) g/dL Globulin 3.7 (1.7-4.1) g/dL Albumin/Globulin Ratio 1.3 (1.0-2.8) Lipase 93 (23-300) U/L Point of care testing: Point of Care Testing Test Results Negative Urine Dip Bedside Urine Glucose Negative Bedside Urine Bilirubin - Negative Bedside Urine Ketone - Negative Urine Specific [place] 1.000 Bedside Urine Occult Blood - Negative Bedside Urine pH 6.0 Bedside Urine Protein - Negative Bedside Urine Urobilinogen - Negative Bedside Urine Nitrite - Negative Bedside Urine Leukocytes - Negative Esterase Imaging Data Chest x-ray: Radiologist's Impression: PROCEDURE: XR CHEST 1V INDICATIONS: Chest Pain TECHNIQUE: One view of the chest was acquired. COMPARISON: [facility], , XR CHEST 1V, 05/25/2025, 7:31. FINDINGS: Surgical changes and devices: None. Lungs and pleura: Lungs are clear. No pleural effusions or pneumothorax. Mediastinum: Mediastinal contours appear normal. Heart size is normal. Bones and chest wall: No suspicious bony lesions. Overlying soft tissues appear unremarkable. IMPRESSION: No acute cardiopulmonary abnormality is seen. Approved by: Osvaldo Pat M.D. on 07/09/2025 at 11:30 ECG Data Interpretation: Normal sinus rhythm rate 89 CT interval 128 QRS [address] depression in precordial leads no new elevation similar to previous EKGs in May Narrative Medical decision making narrative: Patient is a 24-year-old female who presents today with nausea. She is concerned that she has been hypokalemic in the past. Being worked up for a variety of things. She also reports that ever she closes her eyes her eyelids flutter. When she stands up sometimes her heart rate is elevated. Records have been reviewed, she had imaging head and neck ultrasound which showed a nonspecific hypoechoic nodule, she had an MRI of her abdomen which did not show any masses or abnormality in her pancreas Blood work has been reviewed she has no leukocytosis or electrolytes are within normal limits no hypokalemia noted today p glucose is 91 creatinine is 0.8, troponin negative Urinalysis is negative for and UTI Chest x-ray does not show any abnormalities Offered patient IV fluids but declined At this time she is mildly tachycardic but no evidence of dehydration troponin is negative. She has significant outpatient workup which is all negative at this time. This time no need for any emergent imaging. No need for antibiotics there is no source of infection found. Follow-up with primary care. Discharge Plan Departure Patient Disposition: Home Clinical Impression: Nausea Instructions: DI for Nausea -- Adult Activity Restrictions/Additional Instructions: *You have been diagnosed with nausea *What to do: Potassium today is 3.4 which is on the lower end of normal but higher than what it has been previously. No need for antibiotics today *Continue to take medications as directed *Follow up with your primary care provider in 2-3 days or call [phone] *Return to ER if you should have any new, worsening or concerning symptoms Prescriptions: No Action drospirenone-ethinyl estradiol 3-0.02 mg tablet 1 tab PO DAILY sumatriptan succinate 50 mg tablet See Rx Instructions PO .COMPLEX Qty: 9 0RF Rx Instructions: take 1 tab at onset of headache; if no relief may repeat 1 tab after at least 2 hrs; max = 2 tabs/24 hr PO potassium chloride 20 mEq tablet,ER particles/crystals 40 meq PO DAILY Qty: 6 0RF Referrals: ProviderNathalia [Primary Care Provider, Family Practice] Stand Alone Forms: Patient Portal/API
--- NOTE | 2025-07-09 15:34 | PC.NURSE ---
Pt denies wanting any IV fluids. Pt states she is not dehydrated and would rather just go home
== END 2025-07-09 15:40 | disposition home or self-care (01) ==
PROVIDERS: Emergency Provider Emergency Medicine
DX: R11.0 Nausea (principal); E87.6 Hypokalemia; R07.9 Chest pain, unspecified
CPT/HCPCS: 36415; 71045; 80053; 81003; 81025; 82550; 83690; 83735; 83880; 84484; 85025; 85610; 85730; 93005; 99283; 99284